=== PATIENT | male | born 1975 | race Caucasian/White ===

== ENCOUNTER 2020-12-06 09:26 | Day surgery (SDC) | payer OTHER | END 2020-12-06 15:45 | disposition home or self-care (01) | LOC: AMB-ENDOS 09:26 | PROVIDERS: ATTEND Colon & Rectal Surgery | DX: K63.5 Polyp of colon (principal); K64.8 Other hemorrhoids; Z12.11 Encounter for screening for malignant neoplasm of colon; Z20.822 Contact with and (suspected) exposure to COVID-19 ==